=== PATIENT | female | born 1965 | race Caucasian/White ===

== ENCOUNTER 2017-04-01 01:36 | Emergency (ER) | payer OTHER ==
[~2017-04-01] VITALS: Ht 167.6 cm; Wt 87.5 kg
[2017-04-01 03:31] VITALS: BP 146/87
== END 2017-04-01 03:31 | disposition home or self-care (01) ==
LOC: ED 01:36
DX: N39.0 Urinary tract infection, site not specified (principal); I10 Essential (primary) hypertension; Z88.5 Allergy status to narcotic agent